=== PATIENT | female | born 1960 | race Caucasian/White ===

== ENCOUNTER 2023-07-30 15:39 | Outpatient (CLI) | payer BC | END 2023-07-30 15:40 | disposition home or self-care (01) | LOC: CSHCP 15:39 | PROVIDERS: ATTEND Internal Medicine Critical Care Medicine | DX: R05.3 Chronic cough (principal); J44.9 Chronic obstructive pulmonary disease, unspecified | CPT/HCPCS: 94060; 94726; 94729; 94760 ==

== ENCOUNTER 2025-01-21 09:32 | Outpatient (CLI) | payer BC | END 2025-01-21 09:33 | disposition home or self-care (01) | LOC: CSHSLEEP 09:32 | PROVIDERS: ATTEND Family Medicine | DX: G47.33 Obstructive sleep apnea (adult) (pediatric) (principal); R53.83 Other fatigue; R51.9 Headache, unspecified; F32.A Depression, unspecified; F41.9 Anxiety disorder, unspecified; R06.83 Snoring; I10 Essential (primary) hypertension | CPT/HCPCS: 95800 ==

== ENCOUNTER 2025-06-23 07:03 | Observation (INO) | payer BC ==
[2025-06-23] MEDS ORDERED: Famotidine/PF 20 mg/2ml Vial ONE (08:38)
[2025-06-23] MEDS ORDERED: PROPOFOL 20 ML ONE (08:42)
[2025-06-23] MEDS ORDERED: Lidocaine 1% PF 5 ML VIAL ONE (08:43)
[2025-06-23] MEDS ORDERED: Rocuronium Bromide 10 MG/ML (10ML VIAL) ONE (08:43)
[2025-06-23] MEDS ORDERED: CEFAZOLIN 2 GM VIAL ONE (08:57)
[2025-06-23] MEDS ORDERED: Bupivacaine/Epinephrine 0.25% 30 ML VIAL ONE (08:57)
[2025-06-23] MEDS ORDERED: PHENYLEPHRINE-NS 100 MCG/ML 10 ML SYRINGE ONE (10:44)
[2025-06-23] MEDS ORDERED: SUGAMMADEX SODIUM 200 MG/2 ML VIAL ONE ×2 (11:42→11:51)
[2025-06-23] MEDS ORDERED: Ondansetron PF 4 MG/2 ML Vial ONE ×2 (11:42→12:22)
[2025-06-23] MEDS ORDERED: [UNRECOGNIZED DRUG - OTHER] INH PRN (13:43)
[2025-06-23] MEDS ORDERED: SALMETEROL INH PRN (13:43)
[2025-06-23] MEDS ORDERED: FLUTICASONE PROPION INH PRN (13:43)
[2025-06-23] MEDS ORDERED: Glucagon 1 MG/ML KIT IM PRN (13:43)
[2025-06-23] MEDS ORDERED: hydrALAZINE 20 MG/ML VIAL SLOW IVP PRN (13:43)
[2025-06-23] MEDS ORDERED: Dextrose 50% Abboject 50 ML SYRINGE SLOW IVP PRN (13:43)
[2025-06-23] MEDS ORDERED: Albuterol 2.5 MG (3 mL) NEB NEB PRN (13:53)
[2025-06-23 14:21] VITALS: BMI 27.1
[2025-06-23] MEDS: D5 1/2 NS w/20 mEq KCL 1,000 ML IV SCH (15:11)
[2025-06-23] MEDS: Acetaminophen 500 MG TAB PO SCH (15:15)
[2025-06-23] MEDS: oxyCODONE 5 MG TAB PO PRN (18:32)
[2025-06-23] MEDS ORDERED: ALPRAZolam 0.25 MG TAB PO SCH (21:00)
[2025-06-23] MEDS: Ondansetron PF 4 MG/2 ML Vial IVP PRN (21:42)
[2025-06-23] MEDS: Famotidine 20 MG TAB PO SCH (21:46)
[2025-06-23] MEDS: Famotidine/PF 20 mg/2ml Vial SLOW IVP SCH (22:22)
[2025-06-24] MEDS: Enoxaparin 40 MG (0.4 mL) SYRINGE SC SCH (09:21)
[2025-06-24 12:55] VITALS: BP 125/68; TEMP 98
== END 2025-06-24 13:07 | disposition home or self-care (01) ==
LOC: CSHSDC 07:03 → CSHTELE 13:30
PROVIDERS: ADMIT Surgery; ATTEND Surgery
PROC: 0WUF4JZ Supplement Abdominal Wall with Synthetic Substitute, Percutaneous Endoscopic Approach (ICD-10-PCS; principal; 2025-06-23)
PROC: 0JH60WZ Insertion of Totally Implantable Vascular Access Device into Chest Subcutaneous Tissue and Fascia, Open Approach (ICD-10-PCS; 2025-06-23)
PROC: 0FB24ZZ Excision of Left Lobe Liver, Percutaneous Endoscopic Approach (ICD-10-PCS; 2025-06-23)
DX: K43.2 Incisional hernia without obstruction or gangrene (principal); C22.7 Other specified carcinomas of liver; M62.08 Separation of muscle (nontraumatic), other site; C15.9 Malignant neoplasm of esophagus, unspecified; I25.10 Atherosclerotic heart disease of native coronary artery without angina pectoris; K21.9 Gastro-esophageal reflux disease without esophagitis; E03.9 Hypothyroidism, unspecified; J45.909 Unspecified asthma, uncomplicated; G47.33 Obstructive sleep apnea (adult) (pediatric); Z85.01 Personal history of malignant neoplasm of esophagus; Z90.710 Acquired absence of both cervix and uterus; Z98.890 Other specified postprocedural states; Z88.1 Allergy status to other antibiotic agents; Z88.8 Allergy status to other drugs, medicaments and biological substances; Z79.890 Hormone replacement therapy; Z79.51 Long term (current) use of inhaled steroids; Z79.899 Other long term (current) drug therapy
CPT/HCPCS: 71045; 88307; 88341; 88342; 94660; 94760; C1781; C1788; J1100; J1308; J1642; J1650; J2405; J2704; J3010; J3480; S2900